=== PATIENT | female | born 1995 | race Caucasian/White ===

== ENCOUNTER 2022-10-21 20:28 | Emergency (ER) | payer MEDICAID ==
[~2022-10-21] VITALS: Ht 149.9 cm; Wt 93.2 kg
[2022-10-21] MEDS ORDERED: CEPH-585 PO ×3 (21:55→22:36)
[2022-10-21] MEDS ORDERED: bacitracin 15gm ointment TP ONE (21:55)
[2022-10-21] MEDS ORDERED: IBUP-860 PO ×2 (21:55)
[2022-10-21] MEDS ORDERED: cephalexin 250mg capsule PO ONE ×2 (21:55→22:35)
[2022-10-21] MEDS ORDERED: ibuprofen tablet 400 MG TABLET PO ONE (21:55)
[2022-10-21] MEDS ORDERED: PRED10TA PO (22:17)
[2022-10-21] MEDS ORDERED: HYDROcodone/acetaminophen 5mg/325mg tablet PO ONE (22:20)
[2022-10-21 22:28] LABS: CLARITY,URINE SLIGHTLY CLOUDY (Clear); COLOR,URINE YELLOW (Yellow); GLUCOSE, URINE NEGATIVE (Neg); KETONES,URINE 15 mg/dl (Neg); LEUKOCYTE ESTERASE ,URINE MODERATE (Neg); NITRITES, URINE NEGATIVE (Neg); OCCULT BLOOD,URINE MODERATE (Neg); PROTEIN,URINE NEGATIVE (Neg); UROBILINOGEN,URINE 0.2 E.U/dL (0.2-1.0)
[2022-10-21 22:33] LABS: SQUAMOUS EPITHELIAL CELL,UR MANY /LPF (FEW); UA COLLECTION TYPE NON-SPECIFIED
[2022-10-21 22:34] LABS: MUCUS STRANDS FEW /LPF (Neg); WBC,URINE 30-50 /HPF (0-4)
[2022-10-21 22:35] LABS: BACTERIA,URINE 2+ /HPF (Neg); RBC,URINE 20-50 /HPF (0-2)
[2022-10-21 22:47] VITALS: BP 126/74
== END 2022-10-21 22:53 | disposition home or self-care (01) ==
LOC: ER 20:28
DX: N39.0 Urinary tract infection, site not specified (principal); G89.29 Other chronic pain; M54.50 Low back pain, unspecified
CPT/HCPCS: 81001; 99283